=== PATIENT | female | born 1985 | race Caucasian/White ===

== ENCOUNTER 2017-06-27 18:22 | Emergency (ER) | payer SELFPAY ==
[2017-06-27 18:28] VITALS: BP 145/76; BMI 25.0
[2017-06-27 19:59] LABS: BILIRUBIN,URINE NEGATIVE (NEGATIVE); BLOOD/HEMOGLOBIN,URINE 5+ (NEGATIVE); GLUCOSE, URINE NEGATIVE (NEGATIVE); KETONES,URINE NEGATIVE (NEGATIVE); LEUKOCYTE ESTERASE ,URINE 1+ (NEGATIVE); NITRITES,URINE NEGATIVE (NEGATIVE); PROTEIN,URINE 2+ (NEGATIVE); UROBILINOGEN,URINE NORMAL (NORMAL)
--- NOTE | 2017-06-27 20:00 | DR.GENAD ---
HPI - PCP Primary Care Physician: jah - HPI Comment HPI Comment: HISTORY BELOW. - Complaint/Symptoms Chief Complaint Doctors Comments: ABDOMINA PAIN WITH NAUSEA FOR FEW DAYS. STARTED HER PERIOD TODAY, 2 WEEKS IN ADVANCE. MORE PAINFUL THAN USUAL. NO FEVER OR DYSURIA. SHE BELIEVE SHE MAY BE . SHE WAS EXPOSE TO STD ALSO. Chief Complaint:: patient stated her abd pain started today at work when her menstral cycle started. she stated she thought she was then she started her period with bad pain. pt stated she is also out of her seizure meds. dilantin 100mg tid - Nurses notes reviewed Nurses Notes Review: Yes - Source History Provided: Patient - Mode of Arrival Mode of Arrival: Ambulatory - Timing Onset of Chief Complaint: 06/26/17 Came on: Suddenly - Duration Duration: Constant Duration: Days - Severity Severity: Moderate PMH - PMH Past Medical History: Yes Past Medical History: Seizures, Sleep Apnea Past Surgical History: Yes Surgical History: - Family History History of Family Medical Conditions: Yes Family Medical History: [place], Heart Failure - Social History Does patient currently use any type of tobacco product: No Have you used tobacco products in the last 12 months: No Type of Tobacco Use: None Does any household member use tobacco: No Alcohol Use: None Do you use any recreational Drugs:: No Lives With: Family Lives Where: Home - infectious screening In the last 2 months have you had wt loss of >10#?: NO Have you had fever, night sweats or hemotysis?: No Have you traveled outside the country in the last 6 months?: No Isolation: Standard ROS - Review of Systems Constitutional: No Symptoms Reported. negative: Chills, Fever, Weakness, Fatigue Eyes: No Symptoms Reported. negative: Eye Pain, Discharge ENTM: No Symptoms Reported. negative: Ear Pain, Nose Discharge, Nose Congestion , Throat Pain Respiratoy: No Symptoms Reported. negative: Productive Cough, Non-Productive Cough, Short of Breath, Wheezing Cardiovascular: No Symptoms Reported Gastrointestinal/Abdominal: Abdominal Pain, Nausea Genitourinary: Bleeding (PAINFUL MENSTRUATION.), Other (EXPOSURE TO STD.) Neurological: No Symptoms Reported Musculoskeletal: No Symptoms Reported Integumentary: No Symptoms Reported Hematologic/Lymphatic: No Symptoms Reported Endocrine: No Symptoms Reported All Other Systems: Reviewed and Negative PE - Vital Signs Vitals: Temperature 98.6 F Pulse Rate 75 Respiratory Rate 16 Blood Pressure 145/76 O2 Sat by Pulse Oximetry 100 - General Limitations: No Limitations General Appearance: Alert - Head Head Exam: Normal Inspection - Eyes Eye exam: Normal Appearance - ENT ENT Exam: Normal External Ear Exam External Ear Exam: Normal External Inspection TM/Canal Exam: Bilateral Normal Nose Exam: Normal Nose Exam Mouth Exam: Normal Inspection Throat Exam: Normal Inspection - Neck Neck Exam: Normal Inspection, Trachea Midline - Chest Chest Inspection: Symmetric Chest Wall Rise - Respiratory Respiratory Exam: Normal Lung Sounds Bilat Respiratory Exam: Bilateral Clear to Auscultation - Cardiovascular Cardiovascular Exam: Regular Rate, Normal Rhythm, Normal Heart Sounds - Abdominal Exam Abdominal Exam: Normal Bowel Sounds, Soft, Tenderness Abdominal Tenderness: RLQ, LLQ - Extremities Extremities Exam: Normal Inspection - Back Back Exam: Normal Inspection - Neurologic Neurological Exam: Alert, Oriented X3 - Psychiatric Psychiatric Exam: Normal Affect, Normal Mood - Skin Skin Exam: Normal Color MDM - Differential Diagnosis Differential Diagnosis: ABD PAIN, DYSMENORRHEA. STD EXPOSURE. Course - Treatment Treatment: SEE ORDERS. - Education/Counseling Education/Counseling: Patient, Education Educated On: Treatment, Diagnosis, Needs for Follow Up ROR - Labs Reviewed Laboratory Results Reviewed?: Yes Result Diagrams: 06/27/17 20:07 Laboratory: WBC 4.9 X10^3/uL (3.6-10.0) 06/27/17 20:07 RBC 3.79 X10^6/uL (3.5-5.4) 06/27/17 20:07 Hgb 10.1 g/dL (12.0-16.0) L 06/27/17 20:07 Hct 30.9 % (36.0-47.0) L 06/27/17 20:07 MCV 81.5 fL (80.0-100.0) 06/27/17 20:07 MCH 26.5 pg (27.0-34.0) L 06/27/17 20:07 MCHC 32.6 g/dL (33.0-35.0) L 06/27/17 20:07 RDW 15.6 % (11.6-16.5) 06/27/17 20:07 Plt Count 217 X10^3/uL (150.0-450.0) 06/27/17 20:07 MPV 8.5 fL (7.4-11.0) 06/27/17 20:07 Neut % 51.5 % (42.0-75.0) 06/27/17 20:07 Lymph % 41.4 % (21.0-51.0) 06/27/17 20:07 [place] % 6.1 % (0.0-13.0) 06/27/17 20:07 Eos % 0.2 % (0.9-2.9) L 06/27/17 20:07 Baso % 0.8 % (0.2-1.0) 06/27/17 20:07 Neut # 2.5 x10^3/uL (2.2-4.8) 06/27/17 20:07 Lymph # 2.0 X10^3/uL (1.3-2.9) 06/27/17 20:07 [place] # 0.3 x10^3/uL (0.3-0.8) 06/27/17 20:07 Eos # 0.0 x10^3/uL (0.0-0.2) 06/27/17 20:07 Baso # 0.0 X10^3/uL (0.0-0.1) 06/27/17 20:07 Absolute Nucleated RBC 0.1 /100WBC 06/27/17 20:07 HCG, Qual Negative <10 mIU/mL 06/27/17 20:07 Specimen Type Clean catch urine 06/27/17 19:54 Urine Color Red (YELLOW) 06/27/17 19:54 Urine Appearance Cloudy (CLEAR) 06/27/17 19:54 Urine pH 6.0 (5.0 - 8.0) 06/27/17 19:54 Ur Specific [place] 1.020 (1.000-1.030) 06/27/17 19:54 Urine Protein 2+ (NEGATIVE) 06/27/17 19:54 Urine Glucose (UA) Negative (NEGATIVE) 06/27/17 19:54 Urine Ketones Negative (NEGATIVE) 06/27/17 19:54 Urine Occult Blood 5+ (NEGATIVE) 06/27/17 19:54 Urine Nitrite Negative (NEGATIVE) 06/27/17 19:54 Urine Bilirubin Negative (NEGATIVE) 06/27/17 19:54 Urine Urobilinogen Normal (NORMAL) 06/27/17 19:54 Ur Leukocyte Esterase 1+ (NEGATIVE) 06/27/17 19:54 Urine RBC 50-75 /HPF (NEGATIVE) 06/27/17 19:54 Urine WBC 3-5 /HPF (NEGATIVE) 06/27/17 19:54 Ur Squamous Epith Cells Few /HPF (NEGATIVE) 06/27/17 19:54 Urine Bacteria Trace /HPF (NEGATIVE) 06/27/17 19:54 Ur Culture Indicated? No/not indicated 06/27/17 19:54 Ur C. trach DNA (PCR) Not detected (NOT DETECT) 06/27/17 19:50 U N.gonorrhoeae DNA PCR Not detected (NOT DETECT) 06/27/17 19:50 - Diagnosis Discharge Problem: Abdominal pain, STD exposure, Dysmenorrhea, test negative - Discharge Plan Disposition: HOME, SELF-CARE Condition: Stable Prescriptions: Phenytoin Sodium Ext Rel [Dilantin Cap 100 mg Ext Rel] 300 mg PO HS #90 cap - Follow ups/Referrals Follow ups/Referrals: [facility],None [Primary Care Provider] - 2 days - Instructions Instructions: Abdominal Pain, Adult, [id number] Additional Instructions: RETURN TO ED IF WORSE. SOME MEDICATIONS WERE GIVEN FOR YOUR EXPOSURE TO STD.
[2017-06-27 20:07] LABS: APPEARANCE,URINE CLOUDY (CLEAR); BACTERIA,URINE TRACE /HPF (NEGATIVE); COLOR,URINE RED (YELLOW); RBC,URINE 50-75 /HPF (NEGATIVE); SQUAMOUS EPITHELIAL CELL,UR FEW /HPF (NEGATIVE)
[2017-06-27 20:16] LABS: BASOPHILS % (AUTO) 0.8 % (0.2-1.0); EOSINOPHILS % (AUTO) 0.2 % (0.9-2.9); HEMATOCRIT 30.9 % (36.0-47.0); HEMOGLOBIN 10.1 g/dL (12.0-16.0); LYMPHOCYTES % (AUTO) 41.4 % (21.0-51.0); MEAN CORPUSCULAR HEMOGLOBIN 26.5 pg (27.0-34.0); MEAN CORPUSCULAR HGB CONC 32.6 g/dL (33.0-35.0); MEAN CORPUSCULAR VOLUME 81.5 fL (80.0-100.0); MEAN PLATELET VOLUME 8.5 fL (7.4-11.0); MONOCYTES # (AUTO) 0.3 x10^3/uL (0.3-0.8); MONOCYTES % (AUTO) 6.1 % (0.0-13.0); NEUTROPHILS # (AUTO) 2.5 x10^3/uL (2.2-4.8); NEUTROPHILS % (AUTO) 51.5 % (42.0-75.0); PLATELET COUNT 217 X10^3/uL (150.0-450.0); RED BLOOD COUNT 3.79 X10^6/uL (3.5-5.4); RED CELL DISTRIBUTION WIDTH 15.6 % (11.6-16.5); WHITE BLOOD COUNT 4.9 X10^3/uL (3.6-10.0)
[2017-06-27 20:29] LABS: SERUM PREGNANCY TEST, QUAL NEGATIVE <10 mIU/mL
[2017-06-27] MEDS ORDERED: ZITHROMAX TAB 250 MG PO ONE ×2 (21:09→21:20)
[2017-06-27] MEDS ORDERED: ROCEPHIN VIAL 250 MG IM ONE (21:09)
[2017-06-27] MEDS ORDERED: ROCEPHIN VIAL 250 MG ONE (21:20)
[2017-06-27] MEDS ORDERED: XYLOCAINE 1 % (PLAIN) ONE (21:21)
[2017-06-27 21:48] LABS: CHLAMYDIA TRACH URINE NOT DETECTED (NOT DETECT)
== END 2017-06-27 21:48 | disposition home or self-care (01) ==
LOC: ER 18:32
DX: N94.6 Dysmenorrhea, unspecified (principal); Z20.2 Contact with and (suspected) exposure to infections with a predominantly sexual mode of transmission; Z32.02 Encounter for pregnancy test, result negative; R10.31 Right lower quadrant pain
CPT/HCPCS: 36415; 81001; 84703; 85025; 87491; 87591; 96372; 99282; 99283; Q0144; J0696; J2001